=== PATIENT | male | born 1995 | race Caucasian/White ===

== ENCOUNTER 2018-06-05 16:43 | Emergency (ER) | payer OTHER ==
[~2018-06-05] VITALS: Ht 170.2 cm; Wt 75.0 kg
[2018-06-05 16:48] VITALS: BP 118/72; PULSE 75; RESP 18; Ht 170.2 cm; Wt 75.0 kg
[2018-06-05] MEDS ORDERED: AMOX1TAB10 PO (17:52)
[2018-06-05] MEDS ORDERED: FLUT9.9S NASAL (17:52)
[2018-06-05] MEDS ORDERED: IBUP-1542 PO (17:52)
--- NOTE | 2018-06-05 17:55 | ERD ---
ER Documentation Chief Complaint Chief Complaint INTERMITTENT FEVER WITH SINUS PRESSURE/RED EYES TODAY HPI 23-year-old male presents with a history of fevers and pain in the frontal area and maxillary sinus area. He has nasal congestion. He was treated for a cough with Zithromax last week. His cough is improved. He has no current fevers. Denies any chest pain, vomiting, abdominal pain, and and and headache is localized to facial area. ROS All systems reviewed and are negative except as per history of present illness. Medications Home Meds Active Scripts Fluticasone Propionate (Flonase Allergy Relief) 9.9 Ml [place].susp, 1 SPRAY NASAL BID for 10 Days, #1 BOTTLE TO EACH NOSTRIL Prov:KENIA SWIFT MD 06/05/18 Ibuprofen* (Motrin*) 600 Mg Tab, 600 MG PO Q6, #20 TAB Prov:KENIA SWIFT MD 06/05/18 Amoxicillin/Potassium Clav (Amox-Clav 875-125 mg Tablet) 875-125 mg Tab, 1 TAB PO BID for 10 Days, #14 TAB Prov:KENIA SWIFT MD 06/05/18 Allergies Allergies: Coded Allergies: No Known Allergy (Unverified , 06/05/18) PMhx/Soc Medical and Surgical Hx: pt denies Medical Hx, pt denies Surgical Hx Hx Alcohol Use: No Hx Substance Use: No Hx Tobacco Use: No Smoking Status: Never smoker FmHx Family History: No diabetes, No coronary disease, No other Physical Exam Vitals Vital Signs Date Temp Pulse Resp B/P (MAP) Pulse Ox O2 O2 Flow FiO2 Time Delivery Rate 06/05/18 98.6 75 18 118/72 100 16:48 (87) Physical Exam Const: No acute distress Head: Atraumatic Eyes: Normal Conjunctiva ENT: Normal External Ears, Nose and Mouth. Nasal congestion. Tenderness in the frontal and maxillary sinus area. Neck: Full range of motion. No meningismus. Resp: Clear to auscultation bilaterally Cardio: Regular rate and rhythm, no murmurs Abd: Soft, non tender, non distended. Normal bowel sounds Skin: No petechiae or rashes Back: No midline or flank tenderness Ext: No cyanosis, or edema Neur: Awake and alert Psych: Normal Mood and Affect Results 24 hrs Current Medications Medications Dose Sig/[place] Start Time Status Last (Trade) Ordered Route PRN Stop Time Admin Dose Reason Admin Ibuprofen 600 mg ONCE ONCE 06/05/18 06/05/18 (Motrin) PO 18:00 17:44 06/05/18 18:01 12 mg ONCE ONCE 06/05/18 06/05/18 Dexamethasone PO 18:00 17:44 (Decadron) 06/05/18 18:01 Procedures/MDM Patient presents with signs and symptoms likely acute sinusitis. No signs or symptoms of meningismus, area obstruction, facial cellulitis. Will be treated with Decadron 12 mg by mouth here, ibuprofen, Augmentin, ibuprofen and Flonase at home and primary care follow-up and return precautions. The patient was stable with no new complaints during the ER course. Clinically, there is no current evidence to suggest meningitis, sepsis, acute abdomen, pneumonia, stroke, acute coronary syndrome, pulmonary embolism, aortic dissection or any other emergent condition appearing to require further evaluation or hospitalization. Patient counseled regarding my diagnostic impression and care plan. Prior to discharge all questions answered. Pt agrees with treatment plan and understands strict return precautions. Pt is instructed to follow up with primary care provider within 24-48 hours. Precautionary instructions provided including instructions to return to the ER if not improving or for any worsening or changing symptoms or concerns. Departure Diagnosis: Primary Impression: Sinusitis Sinusitis location: frontal Chronicity: acute Recurrence: not specified as recurrent Qualified Codes: J01.10 - Acute frontal sinusitis, unspecified Condition: Stable Patient Instructions: Sinusitis, Abx Tx Additional Instructions: Recheck for new or worsening symptoms with primary care doctor. KENIA SWIFT MD Jun 05, 2018 17:55
[2018-06-05] MEDS ORDERED: IBUPROFEN 600 MG TAB PO ONE (18:00)
[2018-06-05] MEDS ORDERED: DEXAMETHASONE 4 MG TAB PO ONE (18:00)
== END 2018-06-05 18:19 | disposition home or self-care (01) ==
LOC: FTE 16:43
DX: J01.10 Acute frontal sinusitis, unspecified (principal)
CPT/HCPCS: Z7610 ×2; 99283